=== PATIENT | male | born 1975 | race American Indian/Alaskan Native ===

== ENCOUNTER 2021-01-26 03:46 | Emergency (ER) | payer OTHER ==
[2021-01-26 03:54] VITALS: BP 135/93
[2021-01-26] MEDS ORDERED: KETOROLAC 10 MG TAB PO ONE (04:52)
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
== END 2021-01-26 06:25 | disposition home or self-care (01) ==
LOC: ED 03:46
DX: S43.492A Other sprain of left shoulder joint, initial encounter (principal); Z79.899 Other long term (current) drug therapy; V43.32XA Unspecified car occupant injured in collision with other type car in nontraffic accident, initial encounter; Y93.89 Activity, other specified; Y92.488 Other paved roadways as the place of occurrence of the external cause; Y99.8 Other external cause status